=== PATIENT | male | born 1975 | race African-American/Black ===

== ENCOUNTER 2018-05-23 13:52 | Emergency (ER) | payer MEDICAID ==
[~2018-05-23] VITALS: Ht 190.5 cm; Wt 70.3 kg
[2018-05-23 13:55] VITALS: BP 143/90
--- NOTE | 2018-05-23 14:01 | NUR ---
PATIENT AMBULATED TO ER BED 7.
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
[2018-05-23 15:17] VITALS: BP 129/76
--- NOTE | 2018-05-23 15:22 | NUR ---
[facility] PATIENT WAIVER SIGNATURE LUNCH GIVEN.
== END 2018-05-23 15:22 | disposition home or self-care (01) ==
LOC: EDSEX 13:52 → MED 13:52
DX: L03.116 Cellulitis of left lower limb (principal); J45.909 Unspecified asthma, uncomplicated; F17.200 Nicotine dependence, unspecified, uncomplicated
CPT/HCPCS: 99283